=== PATIENT | male | born 1970 | race Caucasian/White ===

== ENCOUNTER 2016-09-17 09:13 | Emergency (ER) ==
[2016-09-17 09:23] VITALS: BP 119/84; TEMP 96.8; BMI 33.0
--- NOTE | 2016-09-17 09:45 | ED.PDOC ---
General ED Provider: Dr. JAKE CARTAGENA JR Chief Complaint: GI Bleed Stated Complaint: onset with mild cold sx with abd pain and diarrhea 2 weeks ago --lasted 24 hrs--then became constipated no good bm for 4 days--decided to use enema-had large bm with black stool--cont to have constipation withabd cramps- anorexia--also had developed cough--unable to lie flat at nite due to cough-- sister recently had pneumonia[End]5 days 96.8 60 20 98% 119/84 10 no diarrhea- -has fatigue--still no bm--abd feel bloated per pt. [ End ] Time Seen by Physician: 09:44 Mode of Arrival: Walk-In Information Source: Patient Exam Limitations: No limitations Primary Care Provider: GURMEET QUINTERO Nursing and Triage Documentation Reviewed and Agree: No Review of Systems - Review Of Systems Constitutional: Reports: Malaise, Weakness Respiratory: Reports: Cough GI: Reports: Abdomen distended, Abdominal pain, Constipated, Diarrhea, Poor appetite. Denies: Blood streaked bowels (MELENA) Neurological: Reports: Weakness All Other Systems: Other Past Medical History - Past Medical History Previously Healthy: Yes Endocrine: Reports: None Cardiovascular: Reports: None Respiratory: Reports: None Hematological: Reports: None Gastrointestinal: Reports: None Genitourinary: Reports: None, Kidney stones Neuro/Psych: Reports: None, Migraine Musculoskeletal: Reports: None, Back Pain Cancer: Reports: None Other Pertinent Past Medical History: ks migr RIGHT ARM DONATO AVALOS, 1993 - Surgical History General Surgical History: Reports: Orthopedic (right forearm surgery-RIGHT ARM SURGDONATO [id number]), Unknown - Family History Family History: Reports: None - Social History Smoking Status: Never smoker Hx Substance Use: No Alcohol Screening: Occasionally Physical Exam - Physical Exam Appearance: Ill-appearing Ill-appearing: Mild Pain Distress: Mild Eyes: KARLA, EOMI, Conjunctiva clear ENT: Ears normal, Nose normal, Oropharynx normal Neck: Supple Respiratory: Airway patent, Breath sounds clear, Breath sounds equal, Respirations nonlabored Cardiovascular: RRR, Pulses normal, No rub, No murmur GI/: Soft, Nontender, No masses, Bowel sounds normal, No Organomegaly Musculoskeletal: Normal strength, ROM intact, No edema, No calf tenderness Skin: Warm, Dry, Normal color Neurological: Sensation intact, Motor intact, Reflexes intact, Cranial nerves intact, Alert, Oriented Psychiatric: Affect appropriate, Mood appropriate Critical Care Note - Critical Care Note Total Time (mins): 0 Course - Course Hematology/Chemistry: 09/17/16 10:05 09/17/16 10:05 Orders, Labs, Meds: Lab Review 09/17/16 09/17/16 09/17/16 10:05 10:28 11:20 WBC 3.51 L RBC 5.19 Hgb 15.5 Hct 43.9 MCV 84.6 MCH 29.9 MCHC 35.3 RDW Coeff of Brittany 12.3 Plt Count 134 L Immature Gran % (Auto) 0.3 Neut % (Auto) 60.1 Lymph % (Auto) 29.9 [place] % (Auto) 8.8 Eos % (Auto) 0.9 Baso % (Auto) 0.0 Immature Gran # (Auto) 0.0 Neut # 2.1 Lymph # 1.1 [place] # 0.3 L Eos # 0.0 Baso # 0.0 Sodium 138 Potassium 3.8 Chloride 106 Carbon Dioxide 22 Anion Gap 13.8 BUN 14 Creatinine 1.49 H Estimated GFR (MDRD) 51.00 BUN/Creatinine Ratio 9.39 Glucose 98 Calcium 8.9 Total Bilirubin 1.38 H AST 26 ALT 29 Alkaline Phosphatase 66 Total Protein 7.2 Albumin 3.9 Globulin 3.3 Albumin/Globulin Ratio 1.18 Amylase 93 Lipase 64 Procalcitonin 0.09 Urine Color Dark Urine Clarity Clear Urine pH 5.5 Ur Specific Jesse 1.020 Urine Protein 1+ Urine Glucose (UA) Negative Urine Ketones 2+ Urine Blood Trace-intact Urine Nitrite Negative Urine Bilirubin 1+ Urine Urobilinogen 1.0 Ur Leukocyte Esterase Negative Urine Microscopic RBC 2-5 Urine Microscopic WBC 0-2 Ur Squamous Epith Cells 0-2 Stl Occult Blood (IFOB) Positive Stool Occult Blood #2 No specimen received Stool Occult Blood #3 No specimen received H. pylori IgG Antibody Negative Orders Category Date Time Status NPO REMINDER: IMAGING ONCE CARE 09/17/16 10:59 Completed ED IV/MEDIPORT/POWERPORT .ONCE EMERGENCY 09/17/16 10:04 Active AMYLASE Stat LAB 09/17/16 10:05 Completed CBC W/ AUTO DIFF Stat LAB 09/17/16 10:05 Completed COMPREHENSIVE METABOLIC PANEL Stat LAB 09/17/16 10:05 Completed H. PYLORI SCREEN Stat LAB 09/17/16 10:05 Completed LIPASE Stat LAB 09/17/16 10:05 Completed OCCULT BLOOD, STOOL Stat LAB 09/17/16 11:20 Completed PROCALCITONIN Stat LAB 09/17/16 10:05 Completed URINALYSIS C & S IF INDICATED Stat LAB 09/17/16 10:28 Completed 0.9 % Sodium Chloride [Saline Flush] MEDS 09/17/16 10:04 Discontinued 1 syr IVF PRN PRN Sodium Chloride 0.9% [Sodium Chloride] 1,000 ml MEDS 09/17/16 10:04 Discontinued IV BOLUS CHEST, 2 VIEWS PA & LAT Stat RADS 09/17/16 09:[address] ABDOMEN/PELVIS WO CONTRAST Stat RADS 09/17/16 09:[address] CHEST W/CONTRAST Stat RADS 09/17/16 10:59 Completed Medications Discontinued Medications Generic Name Dose Route Start Last Admin Trade Name Freq PRN Reason Stop Dose Admin Sodium Chloride 1,000 mls @ 250 mls/hr 09/17/16 10:04 09/17/16 10:26 Sodium Chloride IV 09/17/16 14:03 250 mls/hr BOLUS STA Administration Sodium Chloride 1 syr 09/17/16 10:04 09/17/16 10:26 Saline Flush IVF 1 syr PRN PRN Administration To flush IV Vital Signs: Temp Pulse Resp BP Pulse Ox 09/17/16 09:14 96.8 F L 60 20 119/84 98 Departure - Departure Time of Disposition: 12:19 Disposition: HOME SELF-CARE Discharge Problem: Gastrointestinal hemorrhage Instructions: Gastrointestinal Bleeding (ED) Condition: Good Pt referred to PMD for follow-up: Yes Additional Instructions: no anemia or severe pathology on testing note kidney function is down and bilirubin is up slightly recommend stomach acid erma and follow up with gastroenterology recheck PMD one week- discuss consultation with gastroenterology return if red blood palpitaitons or light headedness recommend 1/2 scoop of miralax in juice for three to five days for constipation do not use any NSAIDS(no ibuprofen or naproxen or aspirin) Prescriptions: Pantoprazole Sodium [Protonix] 40 mg PO DAILY #30 tablet. Allergies/Adverse Reactions: Allergies No Known Allergies Allergy (Verified 09/17/16 09:25) Home Medications: Ambulatory Orders Pantoprazole Sodium [Protonix] 40 mg PO DAILY #30 tablet. 09/17/16
[2016-09-17] MEDS ORDERED: SODIUM CHLORIDE 1,000 ML IV STA (10:04)
[2016-09-17 10:19] LABS: EOSINOPHILS % (AUTO) 0.9 % (0.0-7.0); HEMATOCRIT 43.9 % (42.0-52.0); HEMOGLOBIN 15.5 g/dl (14.0-18.0); IMMATURE GRANULOCYTE % (AUTO) 0.3 % (0.0-5.0); LYMPHOCYTES # (AUTO) 1.1 K/uL (0.60-3.4); LYMPHOCYTES % (AUTO) 29.9 (10.0-50.0); MEAN CORPUSCULAR HEMOGLOBIN 29.9 pg (27.0-31.0); MEAN CORPUSCULAR HGB CONC 35.3 (31.8-35.4); MEAN CORPUSCULAR VOLUME 84.6 fl (80.0-94.0); MONOCYTES # (AUTO) 0.3 K/uL (0.4-2.0); MONOCYTES % (AUTO) 8.8 (0-10); NEUTROPHILS # (AUTO) 2.1 K/ul (2.0-6.9); NEUTROPHILS % (AUTO) 60.1; PLATELET COUNT 134 10^3/uL (140-440); RED BLOOD COUNT 5.19 10^6/ul (4.70-6.10); WHITE BLOOD COUNT 3.51 K/ul (4.2-10.2)
[2016-09-17 10:28] LABS: H. PYLORI ANTIBODY NEGATIVE (NEGATIVE); H.PYLORI INTERNAL QC INTERNAL QC VALID
[2016-09-17 10:32] LABS: BILIRUBIN,URINE 1+ (NEGATIVE); KETONES,URINE 2+ (NEGATIVE); LEUKOCYTE ESTERASE ,URINE Negative (NEGATIVE); NITRITE,URINE Negative (NEGATIVE); PH,URINE 5.5 (5-9); PROTEIN,URINE 1+ (NEGATIVE); URINE, BLOOD Trace-intact (NEGATIVE)
[2016-09-17 10:36] LABS: ADD URINE MICROSCOPIC YES
[2016-09-17 10:40] LABS: ALBUMIN 3.9 g/dL (3.4-5.0); ALBUMIN/GLOBULIN RATIO 1.18; ANION GAP 13.8; BILIRUBIN,TOTAL 1.38 mg/dL (0.00-1.20); BUN/CREATININE RATIO 9.39; CALCIUM 8.9 mg/dL (8.2-10.2); CREATININE 1.49 mg/dL (0.60-1.10); POTASSIUM 3.8 mmol/L (3.5-5.1); TOTAL PROTEIN 7.2 g/dL (6.4-8.2)
--- NOTE | 2016-09-17 10:53 | DI ---
EXAM: Chest two view, frontal and lateral views. HISTORY: Cough. COMPARISON: None available. FINDINGS: Heart size is normal. A 1.7 x 1.1 cm nodular densities seen in the right upper lung betw een the anterior second and third ribs. A few thin linear opacities are seen in the right perihilar region and left base. The lungs are otherwise clear without pleural effusion or pneumothorax. Osse ous structures are intact IMPRESSION: 1. Right upper lung nodular density. Correlation with contrast hand chest CT recommended. 2. Bilateral areas of subsegmental atelectasis or scarring.
--- NOTE | 2016-09-17 11:00 | CT ---
EXAM: CT ABDOMEN AND PELVIS HISTORY: Abdominal pain, nausea and vomiting, diarrhea TECHNIQUE: CT abdomen and pelvis without intravenous contrast. Images were reconstructed using 5 m m section thickness. Reformations were prepared. COMPARISON: 04/07/2015 FINDINGS: Diagnostic limitations exist without including contrast enhanced images. No focal hepatic or spleni c lesions identified. Gallbladder and pancreas appear normal. Normal adrenal glands, kidneys and u reters. Normal abdominal aorta. The stomach is nondistended and unremarkable. Normal appendix. General bowel gas pattern and appear ance is within normal limits. Prostate is mildly prominent. Urinary bladder is normal. No ascites or inflammatory infiltration of the abdominal fat. Mildly prominent fatty bilateral inguinal canals. The bones appear normal. Lung bases are clear. No pneumoperitoneum. IMPRESSION: 1. No acute intra-abdominal or pelvic abnormality identified. Normal appendix and bowel gas patter n. No ascites, inflammatory infiltration of the abdominal fat or free air. 2. Mildly prominent prostate size.
[2016-09-17 11:33] LABS: OCCULT BLOOD INTERNAL QC 1 INTERNAL QC VALID; OCCULT BLOOD SAMPLE 1 POSITIVE (NEGATIVE)
[2016-09-17 11:46] LABS: OCCULT BLOOD INTERNAL QC 2 INTERNAL QC VALID; OCCULT BLOOD INTERNAL QC 3 INTERNAL QC VALID; OCCULT BLOOD SAMPLE 2 NO SPECIMEN RECEIVED (NEGATIVE); OCCULT BLOOD SAMPLE 3 NO SPECIMEN RECEIVED (NEGATIVE)
--- NOTE | 2016-09-17 11:51 | CT ---
EXAM: CT chest with contrast. HISTORY: Right upper lung nodule. COMPARISON: Radiograph earlier the same day. TECHNIQUE: Multiple axial images of the chest were obtained following intravenous administration of 100 mL of Visipaque 320, low osmolar. Images were reformatted in the sagittal and coronal planes. FINDINGS: No mediastinal or hilar lymphadenopathy identified. Calcified mediastinal lymph nodes ar e present. Heart size is normal. There is no pericardial effusion. Thoracic aorta is normal in ca liber. Within the posterior right upper lobe is a 1 cm nodule corresponding recent radiograph which likely contains internal calcifications although on the coronal reformatted images of the margins are somew hat irregular with suggestion of spiculations. There is some thin linear extension towards the pleu ral surface. Linear opacities noted in both lower lobes. No pleural effusion or pneumothorax ident ified. No acute abnormality identified in the upper abdomen. Osseous structures are within normal limits f or the patient's age. IMPRESSION: 1. Right upper lobe nodule which is likely a calcified granuloma, although given the appearance a f ollow-up chest CT 3 months recommended for reassessment. 2. Mild bibasilar subsegmental atelectasis.
== END 2016-09-17 12:46 | disposition home or self-care (01) ==
LOC: ED 09:13
DX: K92.1 Melena (principal); K59.00 Constipation, unspecified; R94.4 Abnormal results of kidney function studies; Z87.442 Personal history of urinary calculi
CPT/HCPCS: 36415; 80053; 81001; 82150; 82272; 83690; 84145; 85025; 86677; 96360; 99283

== ENCOUNTER 2017-03-10 09:11 | Outpatient (CLI) ==
--- NOTE | 2017-03-10 10:21 | CT ---
EXAM: CT of the chest without contrast History: Follow-up lung nodules. Comparison: Chest CT 09/17/2016 Technique: Multiplanar CT images through the thorax were obtained without the administration of IV c ontrast Findings: Heart size is normal. No pericardial effusion. Great vessels are unremarkable. No patho logically enlarged thoracic lymph nodes. No consolidation. No pleural fluid and no pneumothorax. N o change in the right upper lobe calcified granuloma. No suspicious lung nodules or lung masses. [place]ron bsegmental atelectasis seen at the lung bases. Within the visualized upper abdomen, no acute findings. No acute osseous abnormalities. Impression: 1. No acute intrathoracic process. 2. Stable benign calcified granuloma within the right upper lobe. No suspicious lung masses or lung nodules. 3. Subsegmental atelectasis seen at the lung bases.
== END 2017-03-10 09:12 | disposition home or self-care (01) ==
LOC: RAD 09:11
PROVIDERS: ATTEND Family Medicine
DX: R91.1 Solitary pulmonary nodule (principal)